=== PATIENT | female | born 1990 | race Caucasian/White ===

== ENCOUNTER 2022-06-08 08:00 | Outpatient (CLI) | payer OTHER, SELFPAY ==
--- OUTSIDE RECORDS SUMMARY | 2022-06-08 08:10 | XMS_ITS | Clinical Summary ---
:1990 Author Organization [facility] [place] [address] Care Team Providers Name Role Phone Lashay Morrell CN Primary Care Provider Medicine, Maida Jones Family Unavailable [phone] Allergies No known active allergies Medications Medication Sig Dispensed Refills Start Date End Date Status NORGESTIMATE-ETHIN Take 1 Tab by mouth. 0 Active YL ESTRADIOL (TRI-SPRINTEC, 28, ORAL) hydrocodone-acetam Take 1-2 tablets by 15 tablet 0 10/29/2009 Active inophen, 5-500 mg, mouth every 4 hours (VICODIN) Tab if needed for Pain. tablet Max acetaminophen dose: 4000mg in 24 hrs. docusate (COLACE) Take 1 capsule by 20 capsule 0 10/29/2009 Active 100 mg capsule mouth 2 times daily. 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/2021 , high-risk Social History Tobacco Use Types Packs/Day Years Used Date Never Smoker Alcohol Use Standard Drinks/Week Comments No 0 (1 standard drink = 0.6 oz pure alcoho l) Sex Assigned at Date Recorded Not on file Obstetrics History Para Term AB IAB SAB Ectopic Multiple Living Live Births 1 0 0 0 0 0 0 0 Date Outcome GA Total Labor/2nd/3rd Weight Sex Delivery Anes PTL Denice A 1 A5 Name Clin Labor Last Filed Vital Signs Vital Sign Reading Time Taken Comments Blood Pressure 115/66 10/29/2009 2:30 AM CDT Pulse 72 10/29/2009 2:30 AM CDT Temperature 36.5 ??C (97.7 ??F) 10/29/2009 2:30 AM CDT Respiratory Rate 18 10/29/2009 2:30 AM CDT Oxygen Saturation 100% 10/29/2009 2:30 AM CDT Inhaled Oxygen Concentration - - Weight 62.6 kg (138 lb) 10/29/2009 1:25 AM CDT Height 162.6 cm (5' 4) 10/29/2009 1:25 AM CDT Body Mass Index 23.69 10/29/2009 1:25 AM CDT Plan of Treatment Health Maintenance Due Date Last Done Comments Tdap 2002 Depression screening for age 12+ 2003 BMI (ht and wt on same day) for age 0803/24/2009 18+ Hepatitis C screening for age 18-79 2009 Tetanus booster 2011 COVID-19 vaccine series (4 - Booster 07/16/2021 05/21/2021, 11/15/2020, for Pfizer series) 10/24/2020 Influenza for age 9-49 03/29/2022 Pap test for age 21-65 09/11/2024 09/11/2021, 09/11/2021, 10/02/2018 Results Not on filefrom Last 3 Months Insurance Payer Benefit Plan / Subscriber ID Effective Dates Phone Addre ss Type Group [employer] HP [id number] 2020-Present [address] [place] [address] MEDICA MEDICA ELECT [id number] 2007-Presen [address] [address] [place] [address] (Home) [place] [id number] [address] Personal/Family Father 1958 [id number] ([address]) [place] [address] Care Teams Monitor Technician Relationship Specialty Start Date End Date Lashay Morrell CNM PCP - General Certified 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
[2022-06-08 12:36] LABS: Albumin* 4.8 g/dL (3.3-5.0); Chloride* 103 mmol/L (96-114); Sodium* 138 mmol/L (135-149)
[2022-06-08 12:39] LABS: Alanine Aminotransferase* 17 U/L (4-35); Alkaline Phosphatase* 63 U/L (40-150); Aspartate Amino Transferase* 25 U/L (12-35); Bilirubin Total* 0.7 mg/dL (0.1-1.5); Blood Urea Nitrogen* 13 mg/dL (5-24); Carbon Dioxide* 25 mmol/L (20-32); Creatinine* 0.7 mg/dL (0.5-1.5); Estimated Glomerular Filt Rate 119 ml/min; Glucose* 98 mg/dL (60-115); Total Protein* 7.4 g/dL (6.0-8.3)
[2022-06-08 12:40] LABS: Calcium* 9.5 mg/dL (8.4-10.6)
[2022-06-08 12:46] LABS: Vitamin D 25 Hydroxy* 63 ng/mL (30-80)
== END 2022-06-08 08:01 | disposition home or self-care (01) ==
LOC: LONREF 08:01
PROVIDERS: Visit Provider Nurse Practitioner Family
DX: Z79.899 Other long term (current) drug therapy (principal)
CPT/HCPCS: 80053; 82306